=== PATIENT | female | born 1970 | race Caucasian/White ===

== ENCOUNTER 2016-07-24 22:10 | Emergency (ER) | payer BC, MEDICAID ==
[~2016-07-24] VITALS: Ht 170.2 cm; Wt 75.4 kg
[2016-07-24] MEDS ORDERED: ONDANSETRON 2MG/ML, 2ML ONE (22:42)
[2016-07-24] MEDS ORDERED: HYDROmorphone 1 MG/ML, 1ML ONE (22:42)
[2016-07-24 22:50] LABS: HEMOGLOBIN 13.3 g/dL (11.7-16.4)
[2016-07-24] MEDS ORDERED: SODIUM CHLORIDE 0.9% 1,000ML IVBOLUS ONE (23:00)
[2016-07-24] MEDS ORDERED: SODIUM CHLORIDE FLUSH 10ML SYR IVF ONE (23:00)
[2016-07-24] MEDS ORDERED: ONDANSETRON 2MG/ML, 2ML IVPush ONE (23:00)
[2016-07-24] MEDS ORDERED: HYDROmorphone 1 MG/ML, 1ML IVPush PRN (23:00)
[2016-07-24 23:03] LABS: ASPARTATE AMINO TRANSFERASE 21 U/L (15-37); BLOOD UREA NITROGEN 20 mg/dL (7-18)
[2016-07-25] MEDS ORDERED: ONDANSETRON 2MG/ML, 2ML IVPush ONE (00:30)
[2016-07-25] MEDS ORDERED: ONDANSETRON 2MG/ML, 2ML ONE (00:31)
[2016-07-25 01:48] VITALS: BP 118/75
== END 2016-07-25 01:50 | disposition home or self-care (01) ==
LOC: ED 07-25 00:05
DX: K43.6 Other and unspecified ventral hernia with obstruction, without gangrene (principal); Z88.8 Allergy status to other drugs, medicaments and biological substances; Z88.6 Allergy status to analgesic agent; Z88.1 Allergy status to other antibiotic agents
CPT/HCPCS: 36415; 74020; 76705; 80053; 83605; 85025; 96361; 96374; 96375; 99285; J1170; J2405; J7030

== ENCOUNTER 2018-11-06 20:36 | Emergency (ER) | payer MEDICAID ==
[~2018-11-06] VITALS: Ht 175.3 cm; Wt 78.0 kg
[2018-11-06 20:44] VITALS: BP 106/69
[2018-11-06] MEDS ORDERED: FLUT1BLS INH (21:14)
[2018-11-06] MEDS ORDERED: citalopram (21:14)
[2018-11-06] MEDS ORDERED: LEVO75TA5 PO (21:14)
[2018-11-06] MEDS ORDERED: MONT10TA9 PO (21:14)
[2018-11-06] MEDS ORDERED: ALBU18HF INH (21:14)
[2018-11-06] MEDS ORDERED: KETOROLAC 30 MG/1 ML IM ONE (22:00)
[2018-11-06] MEDS ORDERED: KETOROLAC 30 MG/1 ML ONE (22:11)
--- NOTE | 2018-11-06 22:48 | NUR ---
DC EDUCATION PROVIDED, PT DEMONSTRATE UNDERSTANDING. PT AMBULATED STEADILY TO DC WITH RN AND FAMILY
== END 2018-11-06 22:50 | disposition home or self-care (01) ==
LOC: ED 22:44
DX: S39.012A Strain of muscle, fascia and tendon of lower back, initial encounter (principal); M62.830 Muscle spasm of back; G89.11 Acute pain due to trauma; X58.XXXA Exposure to other specified factors, initial encounter; Y93.89 Activity, other specified; Y92.89 Other specified places as the place of occurrence of the external cause; Y99.8 Other external cause status
CPT/HCPCS: 72110; 73502; 96372; 99283; J1885